=== PATIENT | male | born 2000 | race Caucasian/White ===

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

== ENCOUNTER 2018-04-17 09:13 | Emergency (ER) | payer SELFPAY ==
[~2018-04-17] VITALS: Ht 182.8 cm; Wt 60.3 kg
[~2018-04-17 09:13] MED LIST changes: +IBUPROFEN600 MG PO
[2018-04-17 10:13] LABS: BASO % 0.3 % (0.0-1.0); EOS # 0.1 10*3/uL (0.0-0.4); EOS % 0.8 % (1.0-4.0); HEMATOCRIT 46.6 % (42.0-52.0); HEMOGLOBIN 15.9 g/dl (14.0-18.0); LYMPH # 0.6 10*3/uL (1.3-4.4); LYMPH % 9.2 % (27.0-41.0); MEAN CELL VOLUME 88.6 fl (80.0-94.0); MEAN CORPUSCULAR HGB 30.2 pg (27.0-31.0); MEAN CORPUSCULAR HGB CONC 34.1 g/dl (33.0-37.0); MEAN PLATELET VOLUME 9.8 fl (9.6-12.3); MONO # 0.3 10*3/uL (0.1-1.0); MONO % 4.7 % (3.0-9.0); NEUT # 5.3 10*3/uL (2.3-7.9); NEUT % 84.8 % (47.0-73.0); PLATELET COUNT AUTOMATED 281 10*3/uL (130-400); RED BLOOD COUNT 5.26 10*6/uL (4.50-5.90); RED CELL DISTRI WIDTH 12.1 % (0-14.5); WHITE BLOOD COUNT 6.2 10*3/uL (4.8-10.8)
[2018-04-17 10:30] LABS: ALBUMIN 4.1 gm/dl (3.1-4.5); ALKALINE PHOSPHATASE 75 U/L (45-117); BUN 20 mg/dl (7-24); CHLORIDE 101 mmol/L (98-107); CREATININE 1.43 mg/dL (0.70-1.30); LIPASE 61 U/L (73-393); POTASSIUM 3.4 mmol/L (3.5-5.1); SGOT/AST 27 IU/L (3-35); SGPT/ALT 24 U/L (12-78); SODIUM 135 mmol/L (136-145); TOTAL PROTEIN 7.6 gm/dL (6.4-8.2)
[2018-04-17 11:51] LABS: BILIRUBIN 1+ (NEGATIVE); BLOOD NEGATIVE (NEGATIVE); CLARITY CLOUDY (CLEAR); COLOR YELLOW (YELLOW); GLUCOSE NEGATIVE (NEGATIVE); KETONE 2+ (NEGATIVE); LEUKO ESTERASE NEGATIVE (NEGATIVE); NITRITE NEGATIVE (NEGATIVE); SPECIFIC GRAVITY >= 1.030 (1.005-1.030); UROBILINOGEN 0.2 E.U./dl (0.2-1.0)
[2018-04-17 12:31] LABS: BACTERIA TRACE; MUCOUS TRACE
[2018-04-17] MEDS ORDERED: ZOFRAN4 MG PO (12:37)
== END 2018-04-17 12:38 | disposition home or self-care (01) ==
LOC: ED 09:13
PROVIDERS: Physician Assistant
DX: A08.4 Viral intestinal infection, unspecified (principal); K59.00 Constipation, unspecified; R05 Cough; F17.200 Nicotine dependence, unspecified, uncomplicated; Z88.1 Allergy status to other antibiotic agents

== ENCOUNTER 2018-12-01 21:21 | Emergency (ER) | payer SELFPAY ==
[~2018-12-01] VITALS: Ht 182.8 cm; Wt 60.8 kg
[~2018-12-01 21:21] MED LIST changes: +ZOFRAN4 MG PO
[2018-12-01 22:05] LABS: BASO % 0.4 % (0.0-1.0); EOS % 0.5 % (1.0-4.0); HEMATOCRIT 42.1 % (42.0-52.0); HEMOGLOBIN 14.4 g/dl (14.0-18.0); LYMPH # 0.8 10*3/uL (1.3-4.4); LYMPH % 9.5 % (27.0-41.0); MEAN CELL VOLUME 89.8 fl (80.0-94.0); MEAN CORPUSCULAR HGB 30.7 pg (27.0-31.0); MEAN CORPUSCULAR HGB CONC 34.2 g/dl (33.0-37.0); MONO % 11.8 % (3.0-9.0); NEUT # 6.4 10*3/uL (2.3-7.9); NEUT % 77.4 % (47.0-73.0); PLATELET COUNT AUTOMATED 274 10*3/uL (130-400); RED BLOOD COUNT 4.69 10*6/uL (4.50-5.90); WHITE BLOOD COUNT 8.3 10*3/uL (4.8-10.8)
[2018-12-01 22:21] LABS: ALKALINE PHOSPHATASE 62 U/L (45-117); BUN 16 mg/dl (7-24); CHLORIDE 105 mmol/L (98-107); CREATININE 1.23 mg/dL (0.70-1.30); LIPASE 40 U/L (73-393); POTASSIUM 2.8 mmol/L (3.5-5.1); SGOT/AST 23 IU/L (3-35); SGPT/ALT 20 U/L (12-78); SODIUM 137 mmol/L (136-145); TOTAL PROTEIN 7.5 gm/dL (6.4-8.2)
== END 2018-12-01 23:13 | disposition home or self-care (01) ==
LOC: ED 21:21
PROVIDERS: Nurse Practitioner Family
DX: R11.2 Nausea with vomiting, unspecified (principal); Z88.1 Allergy status to other antibiotic agents

== ENCOUNTER 2019-11-07 14:16 | Emergency (ER) | payer SELFPAY ==
[~2019-11-07] VITALS: Ht 182.8 cm; Wt 59.9 kg
== END 2019-11-07 16:27 | disposition left against medical advice (07) ==
LOC: ED 14:16
DX: M25.572 Pain in left ankle and joints of left foot (principal); F17.200 Nicotine dependence, unspecified, uncomplicated; Z88.0 Allergy status to penicillin; Z88.1 Allergy status to other antibiotic agents; W18.39XA Other fall on same level, initial encounter; Y93.89 Activity, other specified; Y92.89 Other specified places as the place of occurrence of the external cause; Y99.8 Other external cause status

== ENCOUNTER 2020-07-10 01:59 | Emergency (ER) | payer OTHER ==
[~2020-07-10] VITALS: Ht 182.8 cm; Wt 61.2 kg
[2020-07-10 02:59] LABS: BASO % 0.3 % (0.0-1.0); HEMATOCRIT 44.4 % (42.0-52.0); LYMPH # 1.4 10*3/uL (1.3-4.4); LYMPH % 11.6 % (27.0-41.0); MEAN CELL VOLUME 83.5 fl (80.0-94.0); MEAN CORPUSCULAR HGB 30.3 pg (27.0-31.0); MEAN CORPUSCULAR HGB CONC 36.3 g/dl (33.0-37.0); MEAN PLATELET VOLUME 9.6 fl (9.6-12.3); MONO % 8.7 % (3.0-9.0); NEUT # 9.3 10*3/uL (2.3-7.9); NEUT % 79.1 % (47.0-73.0); PLATELET COUNT AUTOMATED 390 10*3/uL (130-400); RED BLOOD COUNT 5.32 10*6/uL (4.50-5.90); WHITE BLOOD COUNT 11.7 10*3/uL (4.8-10.8)
[2020-07-10 03:16] LABS: ALBUMIN 4.7 gm/dl (3.1-4.5); ALKALINE PHOSPHATASE 73 U/L (45-117); BUN 15 mg/dl (7-24); CHLORIDE 108 mmol/L (98-107); CREATININE 1.64 mg/dL (0.70-1.30); LIPASE 32 U/L (73-393); POTASSIUM 2.9 mmol/L (3.5-5.1); SGOT/AST 40 IU/L (3-35); SGPT/ALT 26 U/L (12-78); SODIUM 139 mmol/L (136-145); TOTAL PROTEIN 8.4 gm/dL (6.4-8.2)
[2020-07-10 06:38] LABS: BILIRUBIN 1+ (Negative); BLOOD Negative (Negative); CLARITY Clear (Clear); COLOR Dark Yellow (Yellow); GLUCOSE Negative (Negative); KETONE 4+ (Negative); LEUKO ESTERASE Trace (Negative); NITRITE Negative (Negative); SPECIFIC GRAVITY >= 1.030 (1.001-1.030)
[2020-07-10 06:45] LABS: URINE AMPHETAMINES > 1000 (1000ng/ml); URINE BARBITURATES < 200 (200ng/ml); URINE BENZODIAZEPINES < 200 (200ng/ml); URINE CANNABINOIDS (THC) > 50 (50ng/ml); URINE COCAINE < 300 (300ng/ml); URINE METHADONE < 300 (300ng/ml); URINE OPIATES < 300 (300ng/ml)
[2020-07-10 06:47] LABS: BACTERIA 1+; WBC 21-30 wbc/hpf (0-5)
[2020-07-10 06:49] LABS: URINE PHENCYCLIDINE < 25 (25ng/ml)
== END 2020-07-10 08:10 | disposition home or self-care (01) ==
LOC: ED 01:59
PROVIDERS: Emergency Medicine
DX: R42 Dizziness and giddiness (principal); F17.200 Nicotine dependence, unspecified, uncomplicated; Z88.0 Allergy status to penicillin

== ENCOUNTER 2020-12-25 16:05 | Emergency (ER) | payer OTHER ==
[~2020-12-25] VITALS: Ht 180.3 cm; Wt 61.7 kg
[2020-12-25] MEDS ORDERED: PREDNISONE20 M1 PO (18:30)
== END 2020-12-25 19:04 | disposition home or self-care (01) ==
LOC: ED 16:05
DX: L23.7 Allergic contact dermatitis due to plants, except food (principal); F17.200 Nicotine dependence, unspecified, uncomplicated; Z88.0 Allergy status to penicillin; Z88.1 Allergy status to other antibiotic agents

== ENCOUNTER 2021-02-16 07:59 | Emergency (ER) | payer OTHER ==
[~2021-02-16] VITALS: Ht 182.8 cm; Wt 61.7 kg
== END 2021-02-16 09:38 | disposition home or self-care (01) ==
LOC: ED 07:59
DX: S61.412A Laceration without foreign body of left hand, initial encounter (principal); W25.XXXA Contact with sharp glass, initial encounter; Y93.89 Activity, other specified; Y92.89 Other specified places as the place of occurrence of the external cause; Y99.8 Other external cause status

== ENCOUNTER 2021-09-28 13:27 | Emergency (ER) | payer OTHER ==
[~2021-09-28] VITALS: Wt 62.6 kg
[2021-09-28 14:15] LABS: HEMATOCRIT 42.8 % (42.0-52.0); MEAN CORPUSCULAR HGB 30.6 pg (27.0-31.0); MEAN CORPUSCULAR HGB CONC 34.3 g/dl (33.0-37.0); PLATELET COUNT AUTOMATED 269 10*3/uL (130-400); RED BLOOD COUNT 4.81 10*6/uL (4.50-5.90); RED CELL DISTRI WIDTH 12.5 % (0-14.5); WHITE BLOOD COUNT 9.3 10*3/uL (4.8-10.8)
[2021-09-28 14:16] LABS: MANUAL DIFF REFLEX YES
[2021-09-28 14:35] LABS: ALKALINE PHOSPHATASE 61 U/L (45-117); BUN 14 mg/dl (7-24); CHLORIDE 110 mmol/L (98-107); CREATININE 0.96 mg/dL (0.70-1.30); LIPASE 410 U/L (73-393); POTASSIUM 3.5 mmol/L (3.5-5.1); SGOT/AST 18 IU/L (3-35); SGPT/ALT 20 U/L (12-78); SODIUM 140 mmol/L (136-145); TOTAL PROTEIN 6.9 gm/dL (6.4-8.2)
[2021-09-28 14:50] LABS: PLATELET SUFFICIENCY NORMAL (NORMAL); TOTAL CELLS COUNTED 100 #CELLS
[2021-09-28 15:55] LABS: CLARITY Clear (Clear); COLOR Yellow (Yellow)
[2021-09-28 15:56] LABS: BLOOD Negative (Negative); GLUCOSE Negative (Negative); NITRITE Negative (Negative); PH 7.5 (4.5-8.0)
[2021-09-28 16:08] LABS: BILIRUBIN Negative (Negative)
[2021-09-28 16:09] LABS: KETONE 1+ (Negative); LEUKO ESTERASE Trace (Negative)
[2021-09-28 16:10] LABS: BACTERIA TRACE; EPITHELIAL CELLS 0-2; MUCOUS TRACE; RBC 0-2 rbc/hpf (0-2); WBC 0-2 wbc/hpf (0-5)
== END 2021-09-28 18:41 | disposition home or self-care (01) ==
LOC: ED 13:27
PROVIDERS: Physician Assistant
DX: R11.2 Nausea with vomiting, unspecified (principal); R19.7 Diarrhea, unspecified

== ENCOUNTER 2021-10-07 05:41 | Emergency (ER) | payer OTHER | END 2021-10-07 06:58 | disposition left against medical advice (07) | LOC: ED 05:41 | DX: F12.10 Cannabis abuse, uncomplicated (principal) ==

== ENCOUNTER 2021-11-03 21:30 | Emergency (ER) | payer OTHER ==
[~2021-11-03] VITALS: Ht 182.8 cm; Wt 61.7 kg
[2021-11-03] MEDS ORDERED: PREDNISONE10 MG PO (22:15)
== END 2021-11-03 22:07 | disposition home or self-care (01) ==
LOC: ED 21:30
DX: L23.7 Allergic contact dermatitis due to plants, except food (principal); Z88.0 Allergy status to penicillin; Z88.1 Allergy status to other antibiotic agents; F17.210 Nicotine dependence, cigarettes, uncomplicated

== ENCOUNTER 2022-01-13 17:50 | Emergency (ER) | payer OTHER ==
[~2022-01-13] VITALS: Wt 61.7 kg
[~2022-01-13 17:50] MED LIST changes: +PREDNISONE10 MG PO
[2022-01-13] MEDS ORDERED: PREDNISONE10 MG PO (19:28)
== END 2022-01-13 19:49 | disposition home or self-care (01) ==
LOC: ED 17:50
DX: L23.9 Allergic contact dermatitis, unspecified cause (principal); Z88.0 Allergy status to penicillin; Z88.1 Allergy status to other antibiotic agents; F17.200 Nicotine dependence, unspecified, uncomplicated

== ENCOUNTER 2022-03-20 15:41 | Emergency (ER) | payer OTHER ==
[~2022-03-20] VITALS: Ht 182.8 cm; Wt 61.7 kg
== END 2022-03-20 16:46 | disposition left against medical advice (07) ==
LOC: ED 15:41
DX: R10.9 Unspecified abdominal pain (principal); Z53.21 Procedure and treatment not carried out due to patient leaving prior to being seen by health care provider; Z88.0 Allergy status to penicillin; Z88.1 Allergy status to other antibiotic agents

== ENCOUNTER → 2022-06-15 | Emergency (ER) | payer OTHER ==
[~2022-06-15] VITALS: Ht 182.8 cm; Wt 61.7 kg
[~2022-06-15] MED LIST changes: +VIBRA-TAB100 MG PO
== END ==
LOC: ED 12:30
DX: J01.10 Acute frontal sinusitis, unspecified (principal); Z88.0 Allergy status to penicillin; Z88.1 Allergy status to other antibiotic agents; Z87.891 Personal history of nicotine dependence

== ENCOUNTER 2022-11-16 20:32 | Emergency (ER) | payer OTHER ==
[~2022-11-16] VITALS: Ht 177.8 cm; Wt 61.2 kg
[2022-11-16] MEDS ORDERED: FLAGYL 375375 MG PO (20:55)
== END 2022-11-16 21:21 | disposition home or self-care (01) ==
LOC: ED 20:32
DX: Z20.2 Contact with and (suspected) exposure to infections with a predominantly sexual mode of transmission (principal); Z88.0 Allergy status to penicillin; Z88.1 Allergy status to other antibiotic agents; Z79.2 Long term (current) use of antibiotics

== ENCOUNTER 2023-05-25 00:23 | Emergency (ER) | payer OTHER ==
[~2023-05-25] VITALS: Ht 182.8 cm; Wt 59.9 kg
[~2023-05-25 00:23] MED LIST changes: +FLAGYL 375375 MG PO
== END 2023-05-25 06:40 | disposition home or self-care (01) ==
LOC: ED 00:23
DX: B34.9 Viral infection, unspecified (principal); Z88.0 Allergy status to penicillin; Z88.1 Allergy status to other antibiotic agents; Z20.822 Contact with and (suspected) exposure to COVID-19